=== PATIENT | female | born 1965 | race Caucasian/White ===

== ENCOUNTER 2016-07-31 10:57 | Emergency (ER) | payer MEDICAID ==
[~2016-07-31] VITALS: Ht 172.7 cm; Wt 128.2 kg
[~2016-07-31 10:57] MED LIST: LISI40TA PO
[2016-07-31 11:02] VITALS: BP 168/112; PULSE 80; RESP 20; TEMP 97.8; O2SAT 100
[2016-07-31 11:35] VITALS: O2SAT 97
--- NOTE | 2016-07-31 11:41 | PD ---
HPI Chief Complaint: Headache Time Seen by Provider: 11:36 Travel History International Travel<30 days: No Contact w/Intl Traveler<30days: No Traveled to known affect area: No History of Present Illness HPI 51-year-old female with history of hypertension, currently not on any medications, previous headaches, presents to the ER today because she has been having a few days of shortness of breath, tightness in her neck and chest area, headaches, nauseous, vomited times once today, lower back discomfort, and tingling in both hands. She denies any acute distress but states that she has a stressful life and has 10 grandchildren living at home with her as well as had just signed her son in for [employer] today. She denies any fevers, coughing, or any other symptoms. Modifying Factors: None Associated Signs & Symptoms: Headaches, nausea, neck and back discomfort, chest tightness, shortness of breath Risk Factors: History of hypertension, and currently not on any medications PFSH Past Medical History Anemia: Yes Autoimmune Disease: No Blood Disorders: No Cancer: No Cardiovascular Problems: Yes (HTN) Diminished Hearing: No Endocrine: No Gastrointestinal Disorders: Yes (Hemorrhoids, diverticulosis) GERD: Yes Headaches: Yes Hypertension: Yes Immune Disorder: No Musculoskeletal: No Neurologic: No Psychiatric: No Reproductive: No Respiratory: No Immunizations Current: Yes Ulcer: Yes (2004) Tetanus Vaccination: > 5 Years Influenza Vaccination: No ?: Not : 4 Para: 3 Miscarriage: 1 Tubal Ligation: Yes Past Surgical History AICD: No Arteriovenous Shunt: No Genitourinary Surgery: No Gynecologic Surgery: Yes (TUBAL LIGATION) Hysterectomy: Yes Insulin Pump: No Joint Replacement: No Pacemaker: No Other Surgery: Yes Social History Alcohol Use: No Tobacco Use: No Substance Use: No Allergies-Medications (Allergen,Severity, Reaction): Coded Allergies: Iodine (Verified Allergy, Unknown, Patient denies, 07/31/16) Reported Meds & Prescriptions Reported Meds & Active Scripts Active No Active Prescriptions or Reported Medications Review of Systems Except as stated in HPI: all other systems reviewed are Neg Physical Exam Narrative GENERAL: Well-nourished, well-developed middle age white female patient in no acute distress. Awake and oriented 3. Sitting in a lighted room without issues. SKIN: Warm and dry. HEAD: Normocephalic. EYES: No scleral icterus. No injection or drainage. NECK: Supple, trachea midline. CARDIOVASCULAR: Regular rate and rhythm without murmurs, gallops, or rubs. Pulses are present and equal bilaterally. RESPIRATORY: Breath sounds equal bilaterally. No accessory muscle use. GASTROINTESTINAL: Abdomen soft, non-tender, nondistended. MUSCULOSKELETAL: No cyanosis, or edema. BACK: Nontender without obvious deformity. No CVA tenderness. Data Data Last Documented VS Vital Signs Date Time Temp Pulse Resp B/P Pulse Ox O2 Delivery O2 Flow Rate FiO2 07/31/16 12:25 77 18 146/98 96 Room Air 07/31/16 11:02 97.8 Orders Complete Blood Count With Diff (07/31/16 11:36) Comprehensive Metabolic Panel (07/31/16 11:36) Ecg Monitoring (07/31/16 11:36) Iv Access Insert/Monitor (07/31/16 11:36) Oximetry (07/31/16 11:36) Sodium Chloride 0.9% Flush (Ns Flush) (07/31/16 11:45) Ckmb (Isoenzyme) Profile (07/31/16 11:36) Troponin I (07/31/16 11:36) D-Dimer (07/31/16 11:36) Chest, Single Ap (07/31/16 11:36) Lorazepam Inj (Ativan Inj) (07/31/16 11:45) Clonidine (Catapres) (07/31/16 11:45) Labs Laboratory Tests Test 07/31/16 11:45 White Blood Count 6.0 TH/MM3 Red Blood Count 4.69 MIL/MM3 Hemoglobin 13.6 GM/DL Hematocrit 39.7 % Mean Corpuscular Volume 84.6 FL Mean Corpuscular Hemoglobin 29.0 PG Mean Corpuscular Hemoglobin 34.2 % Concent Red Cell Distribution Width 12.9 % Platelet Count 232 TH/MM3 Mean Platelet Volume 8.9 FL Neutrophils (%) (Auto) 59.5 % Lymphocytes (%) (Auto) 30.9 % Monocytes (%) (Auto) 5.1 % Eosinophils (%) (Auto) 3.0 % Basophils (%) (Auto) 1.5 % Neutrophils # (Auto) 3.5 TH/MM3 Lymphocytes # (Auto) 1.9 TH/MM3 Monocytes # (Auto) 0.3 TH/MM3 Eosinophils # (Auto) 0.2 TH/MM3 Basophils # (Auto) 0.1 TH/MM3 CBC Comment DIFF FINAL Differential Comment D-Dimer Quantitative (PE/DVT) 0.23 MG/L FEU Sodium Level 142 MEQ/L Potassium Level 3.6 MEQ/L Chloride Level 104 MEQ/L Carbon Dioxide Level 30.2 MEQ/L Anion Gap 8 MEQ/L Blood Urea Nitrogen 19 MG/DL Creatinine 0.86 MG/DL Estimat Glomerular Filtration 70 ML/MIN Rate Random Glucose 102 MG/DL Calcium Level 8.5 MG/DL Total Bilirubin 0.8 MG/DL Aspartate Amino Transf 32 U/L (AST/SGOT) Alanine Aminotransferase 45 U/L (ALT/SGPT) Alkaline Phosphatase 95 U/L Total Creatine Kinase 60 U/L Troponin I LESS THAN 0.02 NG/ML Total Protein 7.8 GM/DL Albumin 3.9 GM/DL MDM Medical Decision Making Medical Screen Exam Complete: Yes Emergency Medical Condition: Yes Medical Record Reviewed: Yes Interpretation(s) EKG shows NSR, no ST elevation or depression, and no arrhythmias. No significant T-wave inversions. Laboratory Tests Test 07/31/16 11:45 Blood Urea Nitrogen 19 MG/DL (7-18) Estimat Glomerular Filtration 70 ML/MIN (>89) Rate Troponin I LESS THAN 0.02 NG/ML (0.02-0.05) Last 24 hours Impressions Chest X-Ray 07/31/16 1136 Signed Impressions: Service Date/Time: July 12:04 - CONCLUSION: Normal examination for a patient of this age. Jose Darling MD Differential Diagnosis Headaches, neck tightness, chest tightness, shortness of breath, tingling in the handsanxiety attack versus hypertensive urgency versus tension headache versus migraine headache versus metabolic issues versus dehydration Narrative Course Patient has fairly elevated blood pressures. Her EKG did not show any signs of acute ST-T changes. Cardiac enzymes is negative. Lab work did not show any significant metabolic issues. Patient was given clonidine 9 and Ativan in the ER. On reevaluation at 12:30 PM, blood pressure is remarkably improved. At this point, I suspect that some of the symptoms may be related to her blood pressure and some may be secondary to anxiety. At this point, my plan would be to release her with blood pressure control and close follow-up to primary care physician. Return for any worsening in symptoms as necessary. The plan has been discussed with her and she states understanding. Diagnosis Primary Impression: Poorly-controlled hypertension Med/Other Pt SpecificInfo: Prescription(s) given Scripts Lisinopril 20 Mg Tab20 Mg PO DAILY #30 TAB Ref 0 Prov:James Guillen MD 07/31/16 Disposition: 01 DISCHARGE HOME Condition: Stable James Guillen MD Jul 31, 2016 11:41
[2016-07-31] MEDS ORDERED: LORazepam 2 MG/ML VIAL IV PUSH ONE (11:45)
[2016-07-31] MEDS ORDERED: cloNIDine HCL 0.2 MG TAB PO ONE (11:45)
[2016-07-31] MEDS ORDERED: SODIUM CHLORIDE 0.9% FLUSH 5 ML FLUSH IVF PRN (11:45)
[2016-07-31 11:57] LABS: AUTOMATED NEUTROPHIL # 3.5 TH/MM3 (1.8-7.7); BASOPHIL # 0.1 TH/MM3 (0-0.2); BASOPHIL % 1.5 % (0.0-2.0); EOSINOPHIL # 0.2 TH/MM3 (0-0.4); HEMATOCRIT 39.7 % (35.0-46.0); HEMO FLAGS DIFF FINAL; LYMPH % 30.9 % (9.0-44.0); LYMPHOCYTE # 1.9 TH/MM3 (1.0-4.8); MEAN CELL VOLUME 84.6 FL (80.0-100.0); MEAN CORPUSCULAR HGB CONC 34.2 % (32.0-36.0); MONO % 5.1 % (0.0-8.0); NEUT % 59.5 % (16.0-70.0); PLATELET COUNT 232 TH/MM3 (150-450); RED BLOOD COUNT 4.69 MIL/MM3 (4.00-5.30); RED CELL DISTRIBUTION WIDTH 12.9 % (11.6-17.2)
[2016-07-31 12:05] LABS: CHLORIDE 104 MEQ/L (98-107); POTASSIUM 3.6 MEQ/L (3.5-5.1); SODIUM (NA) 142 MEQ/L (136-145)
[2016-07-31 12:09] LABS: ANION GAP 8 MEQ/L (5-15); BICARBONATE 30.2 MEQ/L (21.0-32.0); BLOOD UREA NITROGEN 19 MG/DL (7-18)
[2016-07-31 12:12] LABS: ALT (GPT) 45 U/L (10-53); AST (GOT) 32 U/L (15-37); GLOMERULAR FILTRATION RATE 70 ML/MIN (>89)
[2016-07-31 12:13] LABS: TOTAL BILIRUBIN ADULT 0.8 MG/DL (0.2-1.0)
--- NOTE | 2016-07-31 12:14 | RADHPO ---
EXAM DATE/TIME: 07/31/2016 12:04 [facility] COMPARISON: No previous studies available for comparison. INDICATIONS : Chest pain, short of breath, weakness. MEDICAL HISTORY : Hypertension. SURGICAL HISTORY : None. ENCOUNTER: Initial ACUITY: 4 - 6 days PAIN SCORE: 3/10 LOCATION: Bilateral chest FINDINGS: A single view of the chest demonstrates the lungs to be symmetrically aerated without evidence of mas s, infiltrate or effusion. The cardiomediastinal contours are unremarkable. Osseous structures are intact. CONCLUSION: Normal examination for a patient of this age. Jose Darling MD on July 31, 2016 at 12:12 Board Certified Radiologist. This report was verified electronically.
[2016-07-31 12:15] LABS: ALKALINE PHOSPHATASE 95 U/L (45-117)
[2016-07-31 12:24] LABS: CREATINE KINASE 60 U/L (26-192)
[2016-07-31 12:25] VITALS: BP 146/98; PULSE 77; RESP 18; O2SAT 96
[2016-07-31] MEDS ORDERED: LISI-515 PO (12:41)
--- NOTE | 2016-08-01 23:03 | EKG ---
Date Performed: 07/31/2016 Time Performed: 11:37:52 PTAGE: 51 years EKG: Sinus arrhythmia with borderline 1st degree A-V block rSr'(V1) - probable normal variant Alexx rderline ECG PREVIOUS TRACING : 03/12/2016 11.46 DOCTOR: Lawson Jimenez Interpretating Date/Time 08/01/2016 22:53:34
[2017-01-07] MEDS ORDERED: CLON.1 PO (14:41)
[2017-01-07] MEDS ORDERED: BACIOIN5 EACH EYE (14:53)
== END 2016-07-31 12:50 | disposition home or self-care (01) ==
LOC: PHED 10:57
DX: R06.02 Shortness of breath (principal); I10 Essential (primary) hypertension; K21.9 Gastro-esophageal reflux disease without esophagitis
CPT/HCPCS: 71010; 80053; 82550; 84484; 85025; 85379; 93005; 96374; 99285; J2060

== ENCOUNTER 2016-08-29 09:20 | Emergency (ER) | payer OTHER, MEDICAID ==
[~2016-08-29] VITALS: Ht 172.7 cm; Wt 99.0 kg
[~2016-08-29 09:20] MED LIST changes: +LISI-515 PO; -LISI40TA PO
[2016-08-29 09:23] VITALS: BP 204/100; PULSE 84; RESP 18; TEMP 97.8; O2SAT 100
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
[2016-08-29] MEDS ORDERED: KETOROLAC TROMETHAMINE 30 MG/ML (IVP) VIAL IV PUSH ONE (10:15)
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
[2016-08-29 11:15] VITALS: RESP 17
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
[2016-08-29] MEDS ORDERED: NORC5TAB PO (11:43)
[2016-08-29] MEDS ORDERED: MOBI15TA PO (11:43)
[2016-08-29 12:10] VITALS: BP 150/81; TEMP 97.8
[2017-01-07] MEDS ORDERED: CLON.1 PO (14:41)
[2017-01-07] MEDS ORDERED: BACIOIN5 EACH EYE (14:53)
[2017-01-08] MEDS ORDERED: LISI-515 PO (14:06)
== END 2016-08-29 12:10 | disposition home or self-care (01) ==
LOC: NEPC 09:20
DX: S09.90XA Unspecified injury of head, initial encounter (principal); I10 Essential (primary) hypertension; V49.49XA Driver injured in collision with other motor vehicles in traffic accident, initial encounter; Y92.410 Unspecified street and highway as the place of occurrence of the external cause
CPT/HCPCS: 70450; 72125; 73030; 73502; 73552; 96374; 99284; J1885

== ENCOUNTER 2017-09-23 17:49 | Emergency (ER) | payer MEDICAID, OTHER ==
[~2017-09-23] VITALS: Ht 172.7 cm; Wt 135.7 kg
[~2017-09-23 17:49] MED LIST changes: +ALBUAER3 INH; +AMLO5TAB2 PO; +HYDR-3534 PO; -LISI-515 PO; +LISI20TA PO; +LORA-650 PO; +VITA500012 PO
[2017-09-23 17:51] VITALS: BP 182/104; PULSE 104; RESP 16; TEMP 98.3; O2SAT 95
[2017-09-23] MEDS ORDERED: SODIUM CHLORIDE 0.9% FLUSH 10 ML FLUSH IVF PRN (18:45)
[2017-09-23] MEDS ORDERED: KETOROLAC TROMETHAMINE 30 MG/ML (IVP) VIAL IVP ONE (18:45)
[2017-09-23] MEDS ORDERED: ONDANSETRON HCL 4 MG/2 ML VIAL IVP ONE (18:45)
[2017-09-23] MEDS ORDERED: PROCHLORPERAZINE INJ 10 MG/2 ML VIAL IVP ONE (18:45)
[2017-09-23] MEDS ORDERED: diphenhydrAMINE HCL 50 MG/ML VIAL IVP ONE (18:45)
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
[2017-09-23 19:00] VITALS: BP 156/97; PULSE 81; RESP 16; O2SAT 97
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
[2017-09-23] MEDS ORDERED: IBUP-232 PO (20:12)
[2017-09-23] MEDS ORDERED: CYCL10TA PO (20:12)
[2017-09-23 20:20] VITALS: RESP 16
[2017-09-23 20:39] VITALS: BP 120/70
== END 2017-09-23 20:50 | disposition home or self-care (01) ==
LOC: PHED 17:49
DX: G44.319 Acute post-traumatic headache, not intractable (principal); M50.223 Other cervical disc displacement at C6-C7 level; I10 Essential (primary) hypertension; V44.5XXA Car driver injured in collision with heavy transport vehicle or bus in traffic accident, initial encounter; Y92.410 Unspecified street and highway as the place of occurrence of the external cause
CPT/HCPCS: 70450; 72125; 96374; 96375; 99284; J0780; J1200; J1885; J2405; L0150

== ENCOUNTER 2018-06-02 06:15 | Observation (INO) ==
[2018-06-02] MEDS ORDERED: Metoprolol Tartrate 25 MG Tablet PO ONE (06:45)
[2018-06-02] MEDS ORDERED: Sodium Chlor 0.9% Inj 500 ML IV.CONT ONE (06:45)
[2018-06-02] MEDS ORDERED: Chlorhexidine Gluconate 2% 1 Pack (2 Cloths) TOPICAL ONE (06:45)
[2018-06-02] MEDS ORDERED: Sod Chloride 0.9% Inj 1,000 ML IV.SIG SCH (07:00)
[2018-06-02] MEDS ORDERED: Vancomycin Inj 1,000 MG in Sodium Chlor 0.9% Inj 250 ML IV.SIG SCH (07:00)
[2018-06-02] MEDS ORDERED: fentaNYL Citrate Inj 250 MCG/5 ML Ampul ONE (07:09)
[2018-06-02] MEDS ORDERED: Propofol Inj 500 MG/50 ML Vial ONE ×2 (07:09→10:50)
[2018-06-02] MEDS ORDERED: ceFAZolin 1 GM Premix Inj 2 GM/100 ML FROZ.PIGGY IV.SIG ONE (07:10)
[2018-06-02] MEDS ORDERED: Thrombin Topical Soln 5,000 UNIT Vial TOPICAL ONE (07:10)
[2018-06-02] MEDS ORDERED: Gelatin Size 100 Topical Foam ONE (07:10)
[2018-06-02] MEDS ORDERED: Bisacodyl 10 MG Supp RECTAL PRN (10:00)
[2018-06-02] MEDS ORDERED: Morphine Sulfate Inj 2 MG/ML Vial IV.PUSH PRN (11:00)
[2018-06-02] MEDS ORDERED: *morphine SULFATE 4 MG/ML PERIprocedure ONLY ONE ×3 (12:16→13:03)
--- NOTE | 2018-06-02 13:10 | P.OP ---
Preoperative Diagnosis: C5-6 disk herniation Postoperative Diagnosis: C5-6 disk herniation Date of procedure: 06/02/18 Procedure: C5-6 anterior cervical discectomy, interbody arthodhesis using PEEK cage filled with autologous bone graft, Simplicity plate and screws Anesthesia: RAMIN Surgeon: Kleber Espinal MD Ballet Teacher: Batsheva Solorzano Pathology: none sent Operation and Findings: INDICATIONS FOR THE PROCEDURE Ms Kenny is a 52 year-old female who presented with intractable neck pain and clinical evidence of upper extremity radiculopathy. She failed maximum nonsurgical management including multiple modalities of conservative treatment as well as pain management interventions by an interventional pain specialist. A surgical decompression and arthrodhesis were indicated. The [id number] details of the procedure, indications, alternatives, risks and potential complications were fully discussed with the patient. The patient fully understood. All The questions were answered. No guarantees were given. The patient voiced requesting the procedure and provided informed consents. The patient was offered the alternative of delaying the procedure and continuing with nonsurgical management. DETAILS OF THE SURGICAL PROCEDURE After the induction of general anesthesia, endotracheal intubation was performed. A Cohen catheter, bilateral CASSANDRA hose, and sequential compression devices were placed and kept throughout the procedure. The patient was positioned supine on a Gunner table with the head over a gel doughnut. All pressure points were carefully padded with egg crate mattress. The eyes were tapped shut after ointment was applied by the anesthesiologist to prevent corneal abrasion. A Gio hugger was placed over the exposed lower body to maintain control of the core body temperature. The electrophysiological team placed the needles and electrodes in their proper location and baseline SSEP's and motor evoked potentials were registered. The anterior cervical region was prepped and draped in the usual sterile fashion. A localizing x-ray was performed with a C-arm. The surgical procedure was performed in several steps as follow: SURGICAL APPROACH A skin incision was made along the middle cervical crease with a #10 blade. The dissection was carried out through the platysma exposing the sternocleidomastoid muscle. The cervical spine was approached following the fascial layers of the neck just medial to the anterior border of the sternocleidomastoid and carotid sheath by a combination of sharp and dull dissection. The omohyoid muscle was identified and carefully dissected laterally and the deep cervical fascia was carefully opened. The longus colli muscles were retracted to each side of the midline. A marker was placed at the disc space C5-6 and a cross-table lateral x-ray performed with a C-arm. SURGICAL DECOMPRESSION In order to decompress the anterior surface of the spinal cord it was necessary to preform a microsurgical resection of the disk. At this point in the procedure the operating microscope was draped in the usual sterile fashion and brought to the field. The rest of the surgical procedure was performed using microdissection technique with the exception of the closure. Under the operative microscopic, an anterior osteophytic spur was carefully removed using the Leksell, and a self-retaining retractor was placed underneath the longus colli muscle. The annulus at C5-6 was incised with a #15 blade and microdiscectomy was then carefully carried out using angled curets and pituitary forceps. The patient had a posterior osteophytic spur combined with a disk herniation which was producing mass affect on the anterior surface of the dural sac. The disk herniation was visibly larger than seen in her MRI. This was carefully drilled with a TPS drill and resected with a think foot plate 2mm kerrison under high magnification. The posterior longitudinal ligament was then elevated with an angled curet and incised with a 15 bladed knife. A careful resection of the posterior longitudinal ligament was carried out using a thin footplate 2 mm Kerrison. The decompression was then carried out laterally, and a bilateral foraminotomy was performed with a 2mm thin foot Kerrison. Then the vertebral bodies above and below the disk space were undercut using a 2 mm thin foot Kerrison. The epidural space was the systematically assessed with a nerve hook in search for disk fragments. An excellent decompression was achieved in both, the dural sac and bilateral exiting nerve roots. The incision was then irrigated with a large amount of antibiotic solution INTERBODY ARTHRODHESIS In order to avoid collapse of the disk space which would result in bilateral foraminal stenosis, and to increase the chances of a successful fusion, it was necessary to place an interbody cage filled with autologous bone. At this point of the procedure, the superior and inferior endplates were then evenly decorticated with a TPS drill. The use of a drill in combination with a curette allowed me to systematically remove the cartilaginous endplates, exposing healthy bone for the interbody arthrodesis. forteen millimeters distraction pins were then placed at the vertebral bodies adjacent to the disk space, and gentle distraction was applied. The size of the interbody cage was then assessed using different size spacers, and a rasp was used to ensure no residual cartilage. A PEEK cage of the appropriate size was selected, and the interbody arthrodesis was then preformed by carefully impacting a PEEK cage filled with autologous bone graft to the disc space C5-6. An excellent position of the cage was achieved. This was was confirmed anatomically by felling the space posterior to the implant and distance to the anterior surface of the dural sac. Radiological confirmation of the position was performed with a cross lateral xray performed with the C-arm. INTERNAL INSTRUMENTAL FIXATION Once that the interbody device was in an appropriate position, it was necessary to stabilize the spine with anterior instrumentation. Anterior instrumentation has demonstrated to increase the rate of fusion, acelerate the patient's recovery, and decrease the rate of failed interbody grafts. At this point of the procedure, the distance between the vertebral bodies was carefully measures, and a Simplicity plate was brought to the field and presented in front of the C5 and 6 vertebral bodies. Mushroom Press Operator holes were then drilled using the TPS drill, and the plate was then secured to the spine using self-drilling, self-tapping screws. Initially, the inferior right screw was inserted, followed by placement of the contra lateral upper screw. The remaining screws were sequentially placed in a contra-lateral fashion. A proper purchase was achieved with all screws and the position of the cage, plate and screws, and alignment of the spine was assessed anatomically by direct visualization, and radiologically by performing a cross lateral xray of the cervical spine with the C-arm. CLOSURE The incision was irrigated with several liters of antibiotic solution. Hemostasis was achieved with a bipolar. The screws were locked to prevent backing out. A 7 mm Gunner-Pitt drain was left in the prevertebral space and externalized through a separate stab incision. The incision was then closed in layers. 3-0 Vicryl with interrupted sutures was used to close the platysma and subcutaneous tissue. The skin was closed with 4-0 running subcuticular Vicryl and Dermabond was applied to the skin. The drain was secured with a 3-0 nylon. At the end of the procedure the sponge, needle and instrument counts were all correct. The estimated blood loss was less than 60 cc. No blood transfusion was given. No intraoperative complications occurred. The patient received prophylactic antibiotics. She was then extubated and transferred to the recovery room in stable condition.
[2018-06-02] MEDS ORDERED: *HYDROmorphone PF Inj 1 MG/ML Ampul PERIprocedural Use ONLY ONE (13:35)
[2018-06-02] MEDS: ceFAZolin 2 GM Premix Inj 2 GM/50 ML PIGGYBACK IV.SIG SCH (17:24)
[2018-06-02 17:46] VITALS: RESP 18
[2018-06-02] MEDS: Carvedilol 12.5 MG Tablet PO SCH (20:04)
[2018-06-02] MEDS: Senna/Docusate Sodium 8.6/50 MG Tablet PO SCH (20:05)
[2018-06-03] MEDS: ceFAZolin 2 GM Premix Inj 2 GM/50 ML PIGGYBACK IV.SIG SCH ×2 (01:34→09:00)
[2018-06-03] MEDS: Carvedilol 12.5 MG Tablet PO SCH (09:00)
[2018-06-03] MEDS: Senna/Docusate Sodium 8.6/50 MG Tablet PO SCH (09:00)
--- NOTE | 2018-06-03 10:21 | P.PNNS ---
Subjective Interval history: C5-6 anterior cervical discectomy, interbody arthodhesis using PEEK cage filled with autologous bone graft, Simplicity plate and screws on 06/02/18. She complains of mild incisional discomfort. No radiculopathy in UEs. Paresthesias stable in hands. Pt ambulating to bathroom. Voiding well. Physical Exam Vital signs: Vital Signs 06/02/18 12:00 06/02/18 12:15 06/02/18 12:30 Temperature 97 F L Pulse Rate 86 81 81 Respiratory Rate 14 14 12 Blood Pressure 151/85 H 151/76 H 136/67 Pulse Oximetry 92 L 94 L 95 06/02/18 12:45 06/02/18 13:00 06/02/18 13:15 Temperature Pulse Rate 76 76 75 Respiratory Rate 12 13 13 Blood Pressure 127/61 141/69 H 141/66 H Pulse Oximetry 93 L 94 L 95 06/02/18 13:30 06/02/18 14:00 06/02/18 15:00 Temperature Pulse Rate 82 77 75 Respiratory Rate 16 15 15 Blood Pressure 129/67 137/77 141/74 H Pulse Oximetry 97 97 97 06/02/18 16:00 06/02/18 17:46 06/02/18 20:00 Temperature 97.3 F L 97.7 F 97.2 F L Pulse Rate 77 73 97 H Respiratory Rate 18 18 Blood Pressure 116/67 153/80 H 140/76 Pulse Oximetry 97 94 L 93 L 06/03/18 00:00 06/03/18 04:00 06/03/18 08:00 Temperature 97.1 F L 97 F L 96.2 F L Pulse Rate 98 H 77 70 Respiratory Rate 18 18 18 Blood Pressure 131/74 140/73 142/81 H Pulse Oximetry 94 L 96 95 Intake & Output 06/02/18 06/03/18 06/03/18 18:59 06:59 18:59 Intake Total 1426 / 1426 1108 / 1108 976 / 976 Output Total 420 / 420 315 / 315 Balance 1006 / 1006 793 / 793 976 / 976 Weight 140 kg Intake: IV 376 / 376 688 / 688 976 / 976 NS + KCl 20 mEq Inj 1,000 ML @ 376 / 376 588 / 588 976 / 976 100 mls/hr IV.CONT .Q10H GUILHERME Rx #:[id number] Ancef 2 GM Premix Inj 2 gm In 100 / 100 50 ml @ 100 mls/hr IV.SIG Q8H GUILHERME Rx#:[id number] Oral 50 / 50 420 / 420 Anesthesia Amount 1000 / 1000 Output: Urine 400 / 400 300 / 300 Wound Drainage # 1 Anterior Neck AMBER Drain Other: # Voids 1 Date of Last Bowel Movement 06/02/18 - Constitutional no acute distress, obese - Routine HEENT Exam Head: Present: normocephalic Eye: Present: PERRL - Routine Neck Exam Present: trachea midline - Routine Respiratory Exam Present: CTA bilaterally. Absent: respiratory distress, rhonchi, wheezes - Routine Cardiovascular Exam Present: RRR, S1, S2. Absent: murmur - Routine Abdominal Exam Present: soft, normoactive bowel sounds - Routine Skin Exam Absent: cyanosis, erythema Comments: Anterior cervical incision clean and dry. No signs of infection. - Routine Neurological Exam Present: alert, moving all extremities, normal speech. Absent: sensory deficit (subjective paresthesias in hands chronic and stable.), motor deficit, altered mental status - Routine Psychiatric Exam Present: normal affect, cooperative. Absent: anxious, agitated Assessment and Plan - Plan A: 52 y/o FM s/p C5-6 anterior cervical discectomy, interbody arthrodesis using PEEK cage filled with autologous bone graft, Simplicity plate and screws by Dr. Espinal on 06/02/18. She is doing well and requesting discharge. P: Discharge home Follow up with Dr. Espinal as scheduled. Discussed precautions and restrictions with pt.
[2018-06-03 12:34] VITALS: BP 144/66; PULSE 74; TEMP 96.8; O2SAT 94
== END 2018-06-03 12:45 | disposition home or self-care (01) ==
LOC: HSDI 06:15 → HSDC 06:15 → N06 16:31
PROVIDERS: ADMIT Neurological Surgery; ATTEND Neurological Surgery